=== PATIENT | female | born 1985 | race Caucasian/White ===

== ENCOUNTER 2016-07-28 02:07 | Emergency (ER) | payer OTHER ==
[2016-07-28 02:14] VITALS: TEMP 98.1
[2016-07-28] MEDS ORDERED: ONDANSETRON 4 MG/2 ML VIAL IVP ONE (02:53)
[2016-07-28] MEDS ORDERED: KETOROLAC 30 MG/1 ML SDV IVP ONE (02:53)
[2016-07-28] MEDS ORDERED: NS 1,000 ML IV ONE (02:53)
[2016-07-28 03:04] LABS: % IMMATURE GRANULYOCYTES 0.2 % (0.0-1.1); ABSOLUTE IMMATURE GRANULOCYTES 0.02 10^3/uL (0.00-0.10); ADD DIFF? NO; ADD MORPH? NO; ADD SCAN? NO; ATYPICAL LYMPHOCYTE FLAG 10 (0-99); FRAGMENT RBC FLAG 0 (0-99); HEMATOCRIT 37.5 % (38.0-47.0); HEMOGLOBIN 12.9 g/dL (12.6-16.3); LEFT SHIFT FLG 10 (0-99); LIPEMIA HEMOLYSIS FLAG 90 (0-99); MEAN CELL HEMOGLOBIN 29.5 pg (27.9-34.1); MEAN CELL HEMOGLOBIN CONCENTR. 34.4 g/dL (32.4-36.7); MEAN CELL VOLUME 85.6 fL (81.5-99.8); MEAN PLATELET VOLUME 10.1 fL (8.7-11.7); PLATELET CLUMPS FLAG 0 (0-99); PLATELET COUNT 213 10^3/uL (150-400); RED BLOOD CELL COUNT 4.38 10^6/uL (4.18-5.33); RED CELL DISTRIBUTION WIDTH 12.5 % (11.5-15.2)
[2016-07-28 03:15] LABS: ALANINE AMINOTRANSFERASE 35 IU/L (9-52); ALBUMIN 3.4 g/dL (3.5-5.0); ALKALINE PHOSPHATASE 41 IU/L (38-126); ANION GAP 7 mEq/L (8-16); ASPARTATE AMINOTRANSFERASE 22 IU/L (14-46); BILIRUBIN,TOTAL 0.8 mg/dL (0.1-1.4); CALCIUM 8.7 mg/dL (8.5-10.4); CARBON DIOXIDE 22 mEq/l (22-31); CHLORIDE 108 mEq/L (97-110); CREATININE 0.6 mg/dL (0.6-1.0); GLOMERULAR FILTRATION RATE > 60; GLUCOSE 100 mg/dL (70-100); POTASSIUM 3.8 mEq/L (3.5-5.2); SODIUM 137 mEq/L (134-144)
[2016-07-28] MEDS ORDERED: LORazepam 2 MG/ML INJ IVP ONE (04:11)
[2016-07-28 04:31] VITALS: BP 93/56; PULSE 89; RESP 17; O2SAT 97
[2016-07-28 04:40] LABS: COLOR PALE YELLOW; LEUKOCYTE ESTERASE,URINE NEGATIVE (NEGATIVE); NITRITE,URINE NEGATIVE (NEGATIVE)
--- NOTE | 2016-07-28 04:57 | EDPHY ---
H & P Stated Complaint: MEZA, general pain, tremors, nausea since this am, afebrile, hyperventilating Time Seen by Provider: 07/28/16 02:42 HPI/ROS: HPI The patient presents with body pain which is diffuse from her head to her toes. This is an achy pain which has been present for the last 1 day. It is moderate in severity and associated with some chills, nausea, general fatigue, and hyperventilation. She has no prior history of this. She was able to see her friend who is a surgeon who gave her a L of IV fluid and antiemetic. This helped her to feel better, however tonight her symptoms got worse and that is what brought her in. She has not had a fever though has felt chills. She does not have a runny nose, sore throat, cough. She does not have any dysuria or hematuria. She is not on any new medications. She has not had a rash. REVIEW OF SYSTEMS Constitutional: No fever, no chills. Eyes: No discharge. ENT: No sore throat. Cardiovascular: No chest pain, no palpitations. Respiratory: No cough, no shortness of breath. Gastrointestinal: No abdominal pain, no vomiting. Genitourinary: No hematuria. Musculoskeletal: No back pain. Skin: No rashes. Neurological: No headache. PMHx: History of panic disorder Soc Hx: Lives at home with her partner PHYSICAL General Appearance: Alert, no distress Eyes: Pupils equal and round no pallor or injection ENT, Mouth: Mucous membranes moist Respiratory: There are no retractions, lungs are clear to auscultation Cardiovascular: Regular rate and rhythm Gastrointestinal: Abdomen is soft and non-tender, no masses, bowel sounds normal Neurological: A&O, moves all extremities Skin: Warm and dry, no rashes Musculoskeletal: Neck is supple non tender Extremities: symmetrical, full range of motion Psychiatric: Patient is oriented X 3, there is no agitation Source: Patient Exam Limitations: No limitations - Personal History LMP (Females 10-55): 8-14 Days Ago Current Tetanus/Diphtheria Vaccine: Yes Current Tetanus Diphtheria and Acellular Pertussis (TDAP): Yes - Medical/Surgical History Hx Asthma: No Hx Chronic Respiratory Disease: No Hx Diabetes: No Hx Cardiac Disease: No Hx Renal Disease: No Hx Cirrhosis: No Hx Alcoholism: No Hx HIV/AIDS: No Hx Splenectomy or Spleen Trauma: No Other PMH: Anxiety. Tonsils and adenoids, ankle ORIF - Social History Smoking Status: Light smoker Constitutional: Initial Vital Signs Temperature (C) 36.7 C 07/28/16 02:09 Heart Rate 97 07/28/16 02:09 Respiratory Rate 22 H 07/28/16 02:09 Blood Pressure 88/56 L 07/28/16 02:09 O2 Sat (%) 96 07/28/16 02:09 O2 Delivery Mode Room Air Allergies/Adverse Reactions: No Known Allergies Allergy (Verified 03/16/14 12:05) Home Medications: Medication Instructions Recorded ALPRAZolam [Xanax 0.25 MG (*)] 0.25 mg PO QID #120 tab 10/08/13 Pregabalin [LYRICA] 200 mg PO DAILY 30 Days 10/08/13 Ibuprofen [Motrin (*)] 800 mg PO Q6-8PRN #30 tab 02/02/15 Lorazepam [Ativan] 1 mg PO Q12H PRN #5 tablet 07/28/16 Zoloft 07/28/16 Medical Decision Making Differential Diagnosis: This is a 30-year-old female with history of panic disorder who presents with 1 day of diffuse body pain associated with nausea. On exam, she is well-appearing , well-hydrated with normal vital signs. She does not have any rash, fever, nuchal rigidity. Differential diagnosis includes myalgias from URI, rhabdomyolysis, muscle spasm , anxiety attack. In the emergency room labs were checked. CBC and CMP were normal. She was given a L of fluid, Toradol, Zofran. Her symptoms persisted, thus CK and UA were checked and were also unremarkable. I feel she is suffering from myalgias. I have instructed her to drink plenty of fluids and get rest. She should return to the emergency room if she is worse in any way, otherwise she should follow up with her regular doctor in the next 1-2 days. - Data Points Laboratory Results: Laboratory Results 07/28/16 02:55 07/28/16 02:55 07/28/16 07/28/16 07/28/16 04:30 02:55 02:55 WBC RBC Hgb Hct MCV MCH MCHC RDW Plt Count MPV Neut % (Auto) Lymph % (Auto) [place] % (Auto) Eos % (Auto) Baso % (Auto) Nucleat RBC Rel Count Absolute Neuts (auto) Absolute Lymphs (auto) Absolute Monos (auto) Absolute Eos (auto) Absolute Basos (auto) Absolute Nucleated RBC Immature Gran % Immature Gran # Sodium 137 mEq/L mEq/L (134-144) Potassium 3.8 mEq/L mEq/L (3.5-5.2) Chloride 108 mEq/L mEq/L (97-110) Carbon Dioxide 22 mEq/l mEq/l (22-31) Anion Gap 7 mEq/L L mEq/L (8-16) BUN 11 mg/dL mg/dL (7-23) Creatinine 0.6 mg/dL mg/dL (0.6-1.0) Estimated GFR > 60 Glucose 100 mg/dL mg/dL (70-100) Calcium 8.7 mg/dL mg/dL (8.5-10.4) Total Bilirubin 0.8 mg/dL mg/dL (0.1-1.4) AST 22 IU/L IU/L (14-46) ALT 35 IU/L IU/L (9-52) Alkaline Phosphatase 41 IU/L IU/L (38-126) Creatine Kinase 54 IU/L IU/L (0-156) Total Protein 6.0 g/dL L g/dL (6.3-8.2) Albumin 3.4 g/dL L g/dL (3.5-5.0) Urine Color PALE YELLOW Urine Appearance CLEAR Urine pH 6.0 (5.0-7.5) Ur Specific [place] 1.006 (1.002-1.030) Urine Protein NEGATIVE (NEGATIVE) Urine Ketones NEGATIVE (NEGATIVE) Urine Blood NEGATIVE (NEGATIVE) Urine Nitrate NEGATIVE (NEGATIVE) Urine Bilirubin NEGATIVE (NEGATIVE) Urine Urobilinogen NEGATIVE EU EU (0.2-1.0) Ur Leukocyte Esterase NEGATIVE (NEGATIVE) Ur Culture Indicated? NOT INDICATED (NI) Urine Glucose NEGATIVE (NEGATIVE) 07/28/16 02:55 WBC 8.41 10^3/uL 10^3/uL (3.80-9.50) RBC 4.38 10^6/uL 10^6/uL (4.18-5.33) Hgb 12.9 g/dL g/dL (12.6-16.3) Hct 37.5 % L % (38.0-47.0) MCV 85.6 fL fL (81.5-99.8) MCH 29.5 pg pg (27.9-34.1) MCHC 34.4 g/dL g/dL (32.4-36.7) RDW 12.5 % % (11.5-15.2) Plt Count 213 10^3/uL 10^3/uL (150-400) MPV 10.1 fL fL (8.7-11.7) Neut % (Auto) 87.2 % H % (39.3-74.2) Lymph % (Auto) 8.0 % L % (15.0-45.0) [place] % (Auto) 2.5 % L % (4.5-13.0) Eos % (Auto) 1.9 % % (0.6-7.6) Baso % (Auto) 0.2 % L % (0.3-1.7) Nucleat RBC Rel Count 0.0 % % (0.0-0.2) Absolute Neuts (auto) 7.33 10^3/uL H 10^3/uL (1.70-6.50) Absolute Lymphs (auto) 0.67 10^3/uL L 10^3/uL (1.00-3.00) Absolute Monos (auto) 0.21 10^3/uL L 10^3/uL (0.30-0.80) Absolute Eos (auto) 0.16 10^3/uL 10^3/uL (0.03-0.40) Absolute Basos (auto) 0.02 10^3/uL 10^3/uL (0.02-0.10) Absolute Nucleated RBC 0.00 10^3/uL 10^3/uL (0-0.01) Immature Gran % 0.2 % % (0.0-1.1) Immature Gran # 0.02 10^3/uL 10^3/uL (0.00-0.10) Sodium Potassium Chloride Carbon Dioxide Anion Gap BUN Creatinine Estimated GFR Glucose Calcium Total Bilirubin AST ALT Alkaline Phosphatase Creatine Kinase Total Protein Albumin Urine Color Urine Appearance Urine pH Ur Specific [place] Urine Protein Urine Ketones Urine Blood Urine Nitrate Urine Bilirubin Urine Urobilinogen Ur Leukocyte Esterase Ur Culture Indicated? Urine Glucose Medications Given: Discontinued Medications Sodium Chloride (Ns) 1,000 mls @ 0 mls/hr IV ONCE ONE PRN Reason: Wide Open Stop: 07/28/16 02:54 Last Admin: 07/28/16 03:09 Dose: 1,000 mls Ketorolac Tromethamine (Toradol) 30 mg IVP EDNOW ONE Stop: 07/28/16 02:54 Last Admin: 07/28/16 03:09 Dose: 30 mg Lorazepam (Ativan Injection) 1 mg IVP EDNOW ONE Stop: 07/28/16 04:12 Last Admin: 07/28/16 04:30 Dose: 1 mg Ondansetron HCl (Zofran) 4 mg IVP EDNOW ONE Stop: 07/28/16 02:54 Last Admin: 07/28/16 03:09 Dose: 4 mg Departure - Departure Disposition: Home, Routine, Self-Care Clinical Impression: Myalgia Condition: Good Instructions: Musculoskeletal Pain (ED) Additional Instructions: Please take Tylenol or ibuprofen for the pain. If it is still severe you can take a dose of the Ativan I have prescribed you. Please follow-up with your regular doctor in the next few days if the pain persists. Referrals: ALMA TORREZ [Primary Care Provider] - As per Instructions Prescriptions: Lorazepam [Ativan] 1 mg PO Q12H PRN #5 tablet PRN Reason: Pain, Breakthrough
== END 2016-07-28 05:25 | disposition home or self-care (01) ==
DX: M79.1 Myalgia (principal); F17.200 Nicotine dependence, unspecified, uncomplicated
CPT/HCPCS: 96374; J1885; J2405

== ENCOUNTER 2018-09-13 20:16 | Inpatient (IN) | payer OTHER ==
[2018-09-13 21:07] LABS: PLATELET COUNT 312 10^3/uL (150-400)
[2018-09-13] MEDS ORDERED: ACETAMINOPHEN 500 MG TAB ONE (21:34)
--- NOTE | 2018-09-13 21:34 | EDPHY ---
General - History Smoking Status: Former smoker Time Seen by Provider: 09/13/18 20:33 Narrative: CLINICAL IMPRESSION: M1 hold, suicidal ideations ASSESSMENT/PLAN: 32-year-old female presents to the emergency department on an M1 hold by her LCP for suicidal ideations. Patient reports she has a plan to overdose on her prescription medications because she "feels there is no need to be alive if she lives in a constant state of panic and anxiety". Patient has had psychiatric admissions in the past, the most recent being 3 years ago. She reports no unintentional overdose tonight. Denies alcohol and drugs. Has a clear U tox screen aside from benzos which she takes as needed in the form of Xanax. She has no access to firearms, has no self cutting behavior, is tearful, suicidal, wants to , and has a poor support network. Please see HPI for full details. Patient was medically cleared, TLC evaluation and bed placement pending at time of sign-out to Dr. Rahman at midnight. DIFFERENTIAL DX: Differential includes but not limited to, acute/chronic psychosis, severe depression, suicidal or homicidal ideations, grave disability, failure to thrive , medication noncompliance, medication side effect, alcohol intoxication and illicit drug use, metabolic disturbance, electrolyte imbalance ED PROCEDURES: See lab and/or imaging results below ED COURSE: Patient has been medically cleared for TLC evaluation. She is stable in the ED. On an M1 hold. Case will be signed out to Dr. Rahman pending TLC evaluation and bed placement. CHIEF COMPLAINT: M1 hold for suicidal thoughts HPI: 32-year-old female arrives in the emergency department on an M1 hold for suicidal ideations with her license clinical practitioner . Patient has had a long history of PTSD, anxiety and panic disorder. She also takes medication for depression. She works with a local psychiatrist. She has had inpatient psychiatric admissions in the past due to severe panic. Patient admits to feeling suicidal, states she does not want to live, and has a plan to overdose on her medications. However, she is tearful that her medications are not "enough to kill her". She denies homicidal ideations. She states "howard it worth living if I live in constant state of panic". She denies any self cutting behavior. No access to firearms. She is working with counselors and psychiatrists. Her last admission was 3 years ago. Family lives in [facility]. She does not have a significant local support system. She had a recent relationship and and a promotion at work that increased her stress which she believes exacerbated her panic and anxiety. She takes Xanax as needed but admits she has been taking 3 tablets daily due to increased anxiety and that anxiety is only helped when she is put to sleep by Xanax and Ambien. There are some conflicting reports that patient has been restricting her food intake over her recent relationship ending. Patient tells me that "she is getting better with this". PAST MEDICAL HISTORY: PTSD, depression, anxiety See nurse/triage notes for additional history if applicable Pertinent Past Surgical History: Tonsillectomy, adenoidectomy, orthopedic surgery Family History: No reported family history of mental health illness Social History: Reports no smoking, alcohol use. REVIEW OF SYSTEMS: All other systems negative Constitutional: No fever, no chills, positive for appetite change. Eyes: No discharge, vision change ENT: No sore throat, congestion, ear pain. Cardiovascular: No chest pain, no palpitations. Respiratory: No cough, no shortness of breath. Gastrointestinal: No abdominal pain, no vomiting, diarrhea. Genitourinary: No hematuria, dysuria, flank pain, pelvic pain Musculoskeletal: No back pain, joint swelling, joint pain, myalgias. Skin: No rashes, color change. Neurological: No headache, dizziness, weakness. PHYSICAL EXAM: General Appearance: Alert, tearful, flat affect, poor eye contact, hypotensive , remainder of vital signs stable. HEENT: Oropharynx clear is no erythema or exudates, no tonsillar hypertrophy or asymmetry. Dentition without abnormality. Eyes: [PERRLA, no acute vision change, nystagmus, swelling, discharge, pain or photosensitivity. Neck: Supple, nontender, no lymphadenopathy, no midline pain, FROM, no meningismus. Respiratory: There are no retractions, lungs are clear to auscultation. Cardiac: Regular rate and rhythm, no murmurs or gallops. Gastrointestinal: [Abdomen is soft, nontender Neurological: [ Alert and oriented x 3, CN 2-12 grossly intact Skin: Warm, dry, no rashes, no nodules on palpation. Musculoskeletal: Extremities are symmetrical, full range of motion, no tenderness, deformity, swelling, or erythema. Psychiatric: Patient is oriented X 3, admits to feeling suicidal with plan to overdose on her prescription medication. Denies homicidal ideations. MEDICAL DECISION MAKING: Patient was seen independently. Secondary supervising physician at time of evaluation was Dr. Susanna Sorensen . Diagnosis: Suicidal ideation . New, requires workup Summary: See Assessment and Plan for summary of ED visit Clinical lab tests: ordered / reviewed. Decision to obtain medical records or history from someone other than the patient: Patient's license clinical practitioner Jade Discussed patient with another provider: Dr. Rahman Patient Progress: Stable at time of sign-out. (Evangelista Hughes) Medical Decision Making: Patient is awaiting mental health placement, signed out to Dr. Rahman at 11:30 p.m.. (Teddy Stubbs) 0630: Patient has been sleeping this evening in no acute distress. No complaints. Pending mental health evaluation. Signed over at 7:[address] Thibodeaux. (Geraldo Rahman) Discussion: 7:00 a.m.-I assumed care of this patient at shift change. 7:15 a.m. It seen by mental health and accepted to [facility] by Dr. Lancaster. ( Tamy Thibodeaux) - Objective Vital Signs: Initial Vital Signs Temperature (C) 36.6 C 09/13/18 20:26 Heart Rate 74 09/13/18 20:26 Blood Pressure 89/73 L 09/13/18 20:26 O2 Sat (%) 96 09/13/18 20:26 O2 Delivery Mode Room Air Allergies/Adverse Reactions: No Known Allergies Allergy (Verified 03/16/14 12:05) Home Medications: Medication Instructions Recorded Pregabalin [LYRICA] 200 mg PO DAILY 30 Days capsule 10/08/13 Sertraline HCl [Zoloft 100mg (*)] 150 mg PO DAILY 07/28/16 Zolpidem Tartrate [Ambien] 10 mg PO HS 09/13/18 ALPRAZolam [Xanax 0.5 MG (*)] 0.5 mg PO BID PRN 09/14/18 Acetaminophen [Tylenol 325mg (*)] 325 mg PO Q6 PRN 09/14/18 Pregabalin [LYRICA] 400 mg PO HS 09/14/18 Laboratory Results: Laboratory Results 09/13/18 20:55 09/13/18 20:55 Medications Given: Alprazolam (Xanax) 0.5 mg PO Q8HRS PRN PRN Reason: Anxiety Stop: 03/13/19 11:20 Last Admin: 09/14/18 11:58 Dose: 0.5 mg Discontinued Medications Acetaminophen (Tylenol) 1,000 mg PO EDNOW ONE Stop: 09/13/18 21:36 Last Admin: 09/13/18 21:35 Dose: 1,000 mg Clonazepam (Klonopin) 0.5 mg PO ONCE ONE Stop: 09/14/18 11:09 Last Admin: 09/14/18 14:47 Dose: Not Given Fluconazole (Diflucan) 200 mg PO DAILY ONE Stop: 09/14/18 08:24 Last Admin: 09/14/18 08:51 Dose: 200 mg Lorazepam (Ativan) 1 mg PO EDNOW ONE Stop: 09/13/18 22:16 Last Admin: 09/13/18 22:15 Dose: 1 mg Pregabalin (Lyrica) 200 mg PO ONCE ONE Stop: 09/14/18 11:04 Last Admin: 09/14/18 11:58 Dose: 200 mg Sertraline HCl (Zoloft) 150 mg PO ONCE ONE Stop: 09/14/18 11:06 Last Admin: 09/14/18 11:57 Dose: 150 mg Departure - Departure Disposition: [facility] IP Clinical Impression: Suicidal ideation Condition: Fair
[2018-09-13] MEDS ORDERED: ACETAMINOPHEN 500 MG TAB PO ONE (21:35)
[2018-09-13] MEDS ORDERED: LORazepam 1 MG TAB ONE (22:14)
[2018-09-13] MEDS ORDERED: LORazepam 1 MG TAB PO ONE (22:15)
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
--- NOTE | 2018-09-14 07:50 | ASMTTCLDSP ---
TLC Discharge Disposition Disposition: Answers: Admit Disposition Notes: Notes: Admit Fatoumata Cava. Discharge Concerns/Recommendations: Notes: In consultation with [facility] ED physician, Tamy Thibodeaux MD and on-call psychiatrist, Chase Wetzel MD, both concurred that pt appears to meet 27-65 criteria requiring psychiatric hospitalization as pt appears to be at risk of harm to self due to a mental illness condition. Pt was read the Patient Rights and Responsibilities Statement on 09/14/18 at 0630 hrs, original placed on chart, and was given photocopy of Rights. Pt declined to sign the Patient Rights. Pt was given (but declined to sign) the 3N prohibited belongings list while in the ED. Was patient given the Answers: Yes Inpatient Behavioral Health Prohibited Belongings List while in the ED? For inpatient Chase Wetzel MD admission, the following psychiatrist agreed to accept patient for admission to Behavioral Health ([facility]): Type of Hold: Answers: M1/72-hour Hold Hold initiated by: Answers: Other Notes: Pt's therapist Date Signed: 09/14/2018 07:49 AM Electronically Signed By:Vincenzo Pham
[2018-09-14] MEDS ORDERED: FLUCONAZOLE 100 MG TAB PO ONE (08:23)
--- NOTE | 2018-09-14 08:52 | GCON ---
[f rep st] CONSULTATION DATE OF CONSULTATION: 09/14/2018 Ms. Szymanski is a 32-year-old female with a history of anxiety. She was hospitalized here about 5 year s ago for a similar presentation. She presents to the ER last evening with frequent panic attacks. She takes Lyrica and Zoloft as well as p.r.n. Xanax. She also presented with suicidal ideation. She did not overdose. She was not intoxicated on presentation. Her urine tox showed only benzodiaze pines that she takes in the form of Xanax. Medical history is notable for fairly healthy female. She is also complaining of current yeast infec tion symptoms, but otherwise is without concerning medical complaints. REVIEW OF SYSTEMS: A complete 10-point review of systems conducted negative except as noted in the H PI. PAST MEDICAL HISTORY: History of ankle surgery with plate and subsequent removal, anxiety, adenoidec ming. SOCIAL HISTORY: She works at [employer]. She is a nonsmoker. 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 She does not drink alcohol. FAMILY HISTORY: She denies. ALLERGIES: No known drug allergies. MEDICATIONS: 1. Alprazolam. 2. Lyrica. 3. Zoloft. PHYSICAL EXAMINATION: VITAL SIGNS: Temp 36.6, blood pressure 89/73, pulse 74, breathing 16 times a minute, 96% on room air. GENERAL: Tearful. No acute distress. HEENT: Sclerae anicteric. Orophar ynx clear. Mucous membranes moist. NECK: Supple without lymphadenopathy or JVD. LUNGS: Clear to auscultation bilateral bilaterally. HEART: S1, S2. ABDOMEN: Soft, nontender, non distended. LOWER EXTREMITIES: No edema. Calves nontender. SKIN: Without rash. NEUROLOGIC: Nonf ocal. White count 10.5, hematocrit 43, platelets are 312,000. Chem-7 is normal. Beta HCG is negative. To x screen is positive for benzos, negative alcohol, Tylenol, and salicylates level. I discussed the c ase with Dr. Debra Thibodeaux. ASSESSMENT/PLAN: A 32-year-old female with suicidality. 1. Suicidality/anxiety management per Psych. 2. Yeast infection. We will treat with fluconazole 200 mg x1. This should be adequate. 3. Hypotension. The patient had a similar low blood pressure in the past. She is a lean young fema le. She is alert and oriented. Not tachycardic and euvolemic. No further workup. Thank you for this consultation. [facility] will not follow. /[id number]/MODL
[2018-09-14] MEDS ORDERED: ACETAMINOPHEN 325 MG TAB PO PRN (10:31)
[2018-09-14] MEDS ORDERED: NICOTINE POLACRILEX 2 MG GUM B PRN (10:31)
[2018-09-14] MEDS ORDERED: MAGNESIUM HYDROXIDE 30 ML UDCUP PO PRN (10:31)
[2018-09-14] MEDS ORDERED: MAG HYDROX/AL HYDROX/SIMETH 30 ML UDCUP PO PRN (10:31)
[2018-09-14] MEDS ORDERED: LORazepam 0.5 MG TAB PO PRN (10:31)
[2018-09-14] MEDS ORDERED: PREGABALIN 50 MG CAP PO ONE (11:03)
[2018-09-14] MEDS ORDERED: SERTRALINE HCL 100 MG TAB PO ONE (11:05)
[2018-09-14] MEDS ORDERED: clonazePAM 0.5 MG TAB PO ONE (11:08)
--- NOTE | 2018-09-14 11:12 | PDMN ---
Medical Necessity Medical necessity: Pt meets inpt criteria per MD order and [facility] B-008, Major Depressive Disorder, Adult: Inpatient Care, 3 days. 32 y/o w/current suicidal ideation admitted w/major depressive disorder, severe, panic disorder, and agoraphobia, meets criteria requiring psychiatric hospitalization as pt appears to be at risk of harm to self due to mental illness condition, on M1 hold.
[2018-09-14] MEDS ORDERED: ALPRAZolam 0.5 MG TAB PO PRN ×2 (11:21→11:22)
--- NOTE | 2018-09-14 15:29 | BAPA ---
[f rep st] ADMISSION PSYCHIATRIC ASSESSMENT DATE OF SERVICE: 09/14/2018 CHIEF COMPLAINT: "I am here because of panic attacks that just lasts for days and days. I do not have any way out. I am so tired of this." HISTORY OF PRESENT ILLNESS: From the ED note dated September 13, the patient presented to the emergency department on an M1 hold for suicidal ideations. The patient reported a plan to overdose on her prescription medications. The patient reported no unintentional overdose. From the [facility] evaluation dated 09/14, the patient was placed on a 72-hour M1 hold with start date and time of 09/13/2018, at 7:00 p.m. 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 I have panic attacks daily. I get anxiety around having to take medications. I tell myself I am a fraud. They are going to find out that I do not deserve the promotion that I got a couple months ago and maybe I would be fired. I do not have a college education to fall back on and will not be able to afford my place or a car." The patient was reportedly brought to [facility] ED by [facility] after patient had a phone conversation with her therapist. The patient expressed to the therapist for feeling hopeless and helpless about her panic attacks, seriously considering suicide. The patient was placed on an M1 hold by her outpatient therapist. The patient was admitted involuntarily on an M1 hold due to being a danger to herself and is currently hospitalized for safety, crisis stabilization, and medication evaluation. The patient describes to this BUSINESS MANAGER circumstances that led to current hospitalization as she recently got a promotion at work, overwhelmed and stressed due to promotion. Patient also reports increased stress related to a recent break-up with someone a couple months ago. The patient reports a long history of panic disorder, anxiety. The Patient reports no use of alcohol or other substances prior to this admission. The patient describes current dieting including excessive worry, feeling restless and keyed up. The patient reports she is easily fatigued, difficulty concentrating. Reports this does cause sleep disturbance. Patient reports history of panic attacks. Reports panic attacks are unexpected, reports they "come out of no where." The patient describes symptoms as heart palpitations, increased heart rate, sweating, trembling, feelings of shortness of breath, chest discomfort. Reports she feels lightheaded, feels tingling, feeling as though she is going to lose control. The patient is currently treated on an outpatient basis by Psychiatrist , Margi Miller. Patient reports she has been working with a psychiatrist for the last 5 to 6 years. The patient reports she also sees Jade Blake for therapy. The patient reports she is unsure if her current medications are working. The patient does describe increased use of Xanax p.r.n. over the last several weeks, reporting she has been using Xanax 0.5 mg 2 to 3 times per day. The patient does report good response from Lyrica current dose 200 mg p.o. daily and 400 mg p.o. at bedtime, reports good response from Zoloft 150 mg p.o. daily and Ambien 10 mg p.o. at bedtime for insomnia. PAST PSYCHIATRIC HISTORY: She has a past diagnosis of panic attacks with agoraphobia. The patient reports 1 prior suicide attempt in September of 2013, which she used a box finisher to cut her wrists. The patient has been seen for a mental health evaluation at the [facility] Emergency Department on 09/22/2016, prior to that 10/06/2013, admitted to the [facility] from 10/06/2013 to 10/08/2013. The patient reports she does take her medications as prescribed. The patient denies any history of aggression or violence. Denies any history of homicidal ideation. ALLERGIES: No known allergies. CURRENT MEDICATIONS: The patient requests to this BUSINESS MANAGER to continue her outpatient medications. Current medications are: 1. Tylenol 650 mg p.o. q.4 hours p.r.n. 2. Xanax 0.5 mg p.o. q.8 hours p.r.n. 3. Maalox syrup 30 mL p.o. q.6 hours p.r.n. 4. Milk of magnesia 30 mL p.o. daily. 5. Lyrica 200 mg p.o. daily. 6. Lyrica 400 mg p.o. at bedtime. 7. Zoloft 150 mg p.o. daily. 8. Ambien 10 mg p.o. at bedtime p.r.n. PAST MEDICAL HISTORY: The patient reports history of adenoidectomy, tonsillectomy 2 orthopedic surgeries on her left ankle at ages 22 and 24. The patient reports no other medical or surgical history. SOCIAL HISTORY: The patient currently lives in [place], [place] in a [employer] [facility]. Reports she lives alone. The patient is single, never been and has no children. The patient reports she is not currently involved in a relationship. The patient reports her sexual orientation as heterosexual. Reports she is currently not sexually active. The patient reports no local supports. States her family lives outside of the [facility]. The patient reports her family lives in [place] and [place]. 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 Reports being employed at her current job for the last 2 years. The patient reports no history of duty. The patient reports no history of arrests or other legal history. The patient describes her hindu as Yazidi. The patient describes no hindu or spiritual practice that may impact her treatment. The patient reports parents are currently . Mother currently resides in [place] [facility]. Father lives in [place]. The patient reports her brother age 32 and identical twin sisters ages 28, currently resides outside of the [facility]. The patient reports she was born and raised in [place]. The patient reports meeting all her developmental milestones. Denies any history of learning delays or difficulties. The patient reports no history of TIAs, loss of consciousness, or concussions. Patient reports no history of physical, emotional, or sexual abuse or trauma. SUBSTANCE USE HISTORY: Patient reports she occasionally drank alcohol and other drugs and used other drugs in high school and reports this use as "experimental." The patient reports no current alcohol, marijuana, or other substance use. Reports she has not used alcohol or other substances for many years. The patient's BAL upon admission was 0. The patient's urine drug screen was positive for benzodiazepines. The patient is currently prescribed Xanax. FAMILY PSYCHIATRIC HISTORY: The patient reports mother and father both free of anxiety. The patient reports no family history of suicide or suicide attempts. ADMISSION LABS AND STUDIES: 1. CBC within normal limits except white blood cells were elevated at 10.43, absolute lymphocytes were elevated at 3.9. 2. CMP within normal limits. 3. Beta HCG qualitative test negative. 4. Toxicology screen nonnegative for benzodiazepine and negative all other substances. Negative for ethyl alcohol. MENTAL STATUS EXAM: The patient is a well-nourished female looking stated chronological age. Attire is appropriate. Dress is casual. Grooming status is appropriate. Ambulation is independent. Gait is normal and coordinated. Posture is normal and relaxed. Eye contact is appropriate and adequate. Motor activity is appropriate with purposeful, organized, coordinated movements with no involuntary movements. Attitude is fairly cooperative. At times, patient is guarded, defensive. Patient appears fairly attentive and relates well to this interviewer. Language production is spontaneous. Rate, rhythm and volume are normal. Articulation is clear. Patient reports mood as "anxious" with congruent affect. The patient's thought process is linear and logical. No loose associations, tangential thought, thought blocking, concrete thinking, or any other signs of formal thought disorder. The patient does not report suicidal or homicidal thoughts, ideas, or plans. The patient denies auditory or visual hallucinations. The patient does not appear to be attending stimuli. Patient is oriented to time, place, and situation. The patient's attention and concentration are fair. The patient's insight and judgment poor. There is no evidence of gross cognitive dysfunction during the interview and no evidence of apparent dysfunction. The patient does not report undesirable side effects from current medications. DIAGNOSES: Based on the patient's current presentation, the patient's diagnoses are: 1. Generalized anxiety disorder. 2. Panic disorder. FORMULATION: The patient is a 32-year-old female single currently employed living in [place], [place] who presents to the hospital involuntarily. Currently on an M1 hold due to being a danger to herself. The patient requires continued inpatient care because of current mood instability and recent suicidal ideation with plan to overdose. The patient presents with problems of increased anxiety and panic related to multiple stressors including recent break -up with partner, feeling overwhelmed and depressed but recently given a promotion at her place of employment. The patient's life has been affected by these problems including suicidal ideation with overdose. The patient has a past psychiatric history of panic disorder that is currently treated. Patient reports response to treatment has been poor. The patient is a high suicide safety risk due to current mood instability, ideation with plan to overdose. Protective factors while hospitalized include ongoing safety checks, active involvement in treatment and support from our treatment team. Patient could benefit from inpatient hospitalization, safety, crisis stabilization, and medication evaluation. PLAN: 1. Medications. The patient requests her outpatient medications to be continued. This BUSINESS MANAGER does discuss other options for treating panic, anxiety, insomnia. The patient reports she will consider these options. The patient is very adamant about continuing her outpatient medications, and agrees to continue current medications listed above. Will review other options, risks and benefits of psychotropic medications with the patient throughout the course of her hospitalization. No other medication changes at this time as more time is needed to determine ongoing tolerability and efficacy. Plan is to continue to observe patient for response and side effects from medications, and ongoing monitoring and evaluation. 2. Review with patient informed consent and recommendations for psychotropic medication treatment listed below 3. Labs: additional labs: A1c, liver function, lipid panel, and TSH 4. Therapy: continue milieu and group therapy 5. Further investigation including gathering information from patients relatives and review of past case records to inform treatment plan. 6. Safety/Wellness plan and follow-up outpatient appointments to be established prior to discharge. Next steps are for patient to meet with respiratory care program director to plan a safe discharge plan and establish outpatient services for ongoing treatment. 7. Confer with inpatient treatment team regarding treatment plan. 8. Address psychosocial stressors by meeting with nurse wound care to establish discharge plan including referrals for outpatient services. 9. Legal status: M1 10. Consider discharge on Tuesday if patient is in stable condition, safe, and has a safe discharge plan. ESTIMATED LENGTH OF STAY: 1-3 days PSYCHOTROPIC MEDICATION TREATMENT INFORMED CONSENT and RECOMMENDATIONS: Review nature of condition, diagnosis, and prognosis. Review nature and purpose of psychotropic medication treatment. Review type of psychotropic medications being ordered. Review risk and benefits of psychotropic medication treatment. Review probable length of time will need to take medications. Review risk and benefits of not undergoing psychotropic medication treatment. Review alternative treatments to psychotropic medications. Review psychotropic medications contraindications, drug-drug interactions, side effects, and importance of reporting any side effects to a psychiatric provider or nurse during inpatient hospitalization, and upon discharge to patients psychiatric outpatient provider, primary care provider, or other health hospice care consultant. Review importance of asking a nurse, psychiatric provider, or primary care provider any questions or problems concerning the psychotropic medications. Verify patient understands the information that has been provided, and understands, accepts, and agrees to psychotropic medications. Review patients safety plan and importance of patient to communicate to staff while hospitalized if patient is ever a danger to self/others, or unable to care for self, and upon discharge, the importance for patient to contact [facility] or [facility], or go to the nearest emergency room, if patient is ever a danger to self/others, or unable to care for self. Recommend that upon discharge patient establish medication management treatment with a psychiatric provider, establishes routine therapy appointments, and follow-up with primary care provider. Verify patient understands and agrees to these recommendations. /[id number]/MODL MTDD
[2018-09-14] MEDS: ALPRAZolam 0.5 MG TAB PO PRN (18:05)
[2018-09-14] MEDS: ZOLPIDEM TARTRATE 5 MG TAB PO PRN (20:59)
[2018-09-14] MEDS ORDERED: clonazePAM 0.5 MG TAB PO SCH (21:00)
[2018-09-14] MEDS: PREGABALIN 100 MG CAP PO SCH (21:00)
[2018-09-15] MEDS: PREGABALIN 100 MG CAP PO SCH ×2 (07:51→20:49)
[2018-09-15] MEDS: SERTRALINE HCL 50 MG TAB PO SCH (07:51)
[2018-09-15] MEDS: ALPRAZolam 0.5 MG TAB PO PRN (07:51)
--- NOTE | 2018-09-15 09:05 | SOAPPROG ---
SOAP Progress Note Assessment/Plan: Assessment: Generalized Anxiety Disorder and Panic Disorder. No change, patient continues to be unstable (see subjective/objective note). Patient is not safe to discharge at this time as patient continues to exhibit signs of severe anxiety, and express severe anxiety symptoms. Patient could benefit from continued inpatient hospitalization for crisis stabilization, safety, and medication evaluation. Patients anxiety and panic reaching the point of causing patient to have suicidal ideation prior to admission, and patient could benefit from medication change while hospitalized to prevent anxiety and panic reaching this level of severity. Plan: 1. Psychotropic medications: After reviewing options, risks, and benefits patient agrees to continue current medications with following changes: discontinue Xanax and begin Klonipin 0.5 mg po TID. No other medication changes at this time as more time is needed to determine ongoing tolerability and efficacy. Plan is to continue to observe patient for response and side effects from medications, and ongoing monitoring and evaluation. 2. Review with patient informed consent and recommendations for psychotropic medication treatment listed below 3. Labs: no additional labs at this time 4. Therapy: continue milieu and group therapy 5. Further investigation including gathering information from patients relatives and review of past case records to inform treatment plan. 6. Safety/Wellness plan and follow-up outpatient appointments to be established prior to discharge. Next steps are for patient to meet with care management specialist to plan a safe discharge plan and establish outpatient services for ongoing treatment. 7. Confer with inpatient treatment team regarding treatment plan. 8. Psychosocial stressors addressed through lead case manager. 9. Legal status: M1 10. Consider discharge on Tuesday if patient is in stable condition, safe, and has a safe discharge plan. PSYCHOTROPIC MEDICATION TREATMENT INFORMED CONSENT and RECOMMENDATIONS: Review nature of condition, diagnosis, and prognosis. Review nature and purpose of psychotropic medication treatment. Review type of psychotropic medications being ordered. Review risk and benefits of psychotropic medication treatment. Review probable length of time patient will need to take medications. Review risk and benefits of not undergoing psychotropic medication treatment. Review alternative treatments to psychotropic medications. Review psychotropic medications contraindications, drug-drug interactions, side effects, and importance of reporting any side effects to a psychiatric provider or nurse during inpatient hospitalization, and upon discharge to patients psychiatric outpatient provider, primary care provider, or other health post acute care nurse. Review importance of asking a nurse, psychiatric provider, or primary care provider any questions or problems concerning the psychotropic medications. Verify patient understands the information that has been provided, and understands, accepts, and agrees to psychotropic medications. Review patients safety plan and importance of patient to report to staff while hospitalized if patient is ever a danger to self/others, or unable to care for self, and upon discharge, the importance for patient to contact [facility] or [facility], or go to the nearest emergency room, if patient is ever a danger to self/others, or unable to care for self. Recommend that upon discharge patient establish medication management treatment with a psychiatric provider, establishes routine therapy appointments, and follow-up with primary care provider. Verify patient understands and agrees to these recommendations. 09/15/18 09:04 Subjective: Following up with patient for evaluation of anxiety, panic, and safety. Patient reports, "I feel like the Xanax is not lasting long enough. I took one yesterday around noon, and I felt very anxious by 3. Can we try the Klonipin?" Discuss options, risks, and benefits and patient agrees to discontinue Xanax and begin Klonipin 0.5 mg po TID. Patient expresses the following psychiatric symptoms severe anxiety. Patient does not report undesirable side effects from the medications, and agrees to continue medications. Objective: Vital Signs Temp Pulse Resp BP Pulse Ox 36.8 C 81 14 97/53 L 95 09/14/18 13:38 09/14/18 13:38 09/14/18 13:38 09/14/18 13:38 09/14/18 13:38 MSE: The patient is a well-nourished female looking stated chronological age. Attire is appropriate dress is hospital garb. Grooming status is appropriate. Ambulation is independent. Gait is normal and coordinated. Posture is normal. Eye contact is appropriate. Motor activity is appropriate with purposeful, organized, coordinated movements; with no involuntary movements. Attitude is cooperative. Patient appears attentive and relates well to this interviewer. Language production is spontaneous. R/R/V normal. Articulation is clear. Patient reports mood as anxious with anxious affect. Patients thought process is linear and logical with no signs of thought disorder. Patient does not report suicidal/homicidal thoughts, ideas, or plans. Patient denies auditory, visual hallucinations. Patient denies delusions. Patient does not appear to be attending to internal stimuli. Patients attention and concentration are fair. Patient is oriented to person, place, time, and situation. Patients insight is fair. Patients judgment is fair. - Time Spent With Patient Time Spent With Patient: 15 minutes, met with patient individually. - Pending Discharge Pending Discharge Within 24 Hours: No Pending Discharge Within 48 Hours: No ICD10 Worksheet Patient Problems: Problems Problem Status Onset Suicidal ideation Acute Generalized anxiety disorder Chronic Panic disorder Chronic Anxiety Acute Suicide and self-inflicted injury by cutting and piercing instrument Acute
[2018-09-15] MEDS: clonazePAM 0.5 MG TAB PO SCH ×3 (10:14→20:50)
--- NOTE | 2018-09-15 11:59 | ASMTBHMTP ---
Master Treatment Plan Master Treatment Plan Answers: Depressed Mood with for: Suicidal Ideation Date: 09/15/2018 Diagnosis on Admission: MDD ; MACO Expected length of stay: 3-5 Reason for admission: Notes: The patient stated, "... is the only way out of the pain. It is a deep seated conviction. I feel useless like I should just ." The patient reported decreased suicidal ideation as well as, post traumatic stress disorder; trauma unknown. The patient has a related panic d/o that lasts "days, is physically painful, and violent." Patient's stated presenting problems: Notes: The patient reported feeling like she is "constantly mitigating and avoiding panic" and no longer wishes to live this way. The patient expressed self-hatred. Patient's goals for treatment: Notes: The patient will trial a long acting version of current anti-anxiety medication and get connected with additional outpatient community resources. Patient's strengths: Notes: The patient stated, "I'm intelligent. I can tie elder stems with my tongue." Identify supports outside of hospital: Notes: The patient is supported by outpatient providers and family. Discharge criteria: Notes: Suicidal ideation will resolve and patient will have a plan to safely manage recurrent suicidal ideation. Initial disposition plan/considerations: Notes: The patient will return home, routine, and follow up care. Master Treatment Plan Required Signatures Psychiatrist signature: Answers: Psychiatrist: RN on-shift signature: Answers: RN: Patient signature: Answers: Patient: Date Signed: 09/15/2018 11:59 AM Electronically Signed By:Lois Parisi
[2018-09-15] MEDS ORDERED: NICOTINE POLACRILEX 2 MG GUM B PRN (13:46)
[2018-09-15] MEDS: ZOLPIDEM TARTRATE 5 MG TAB PO PRN (22:21)
[2018-09-16 06:39] VITALS: BP 92/51
[2018-09-16] MEDS: PREGABALIN 100 MG CAP PO SCH (09:43)
[2018-09-16] MEDS: clonazePAM 0.5 MG TAB PO SCH ×2 (09:44→15:50)
[2018-09-16] MEDS: SERTRALINE HCL 50 MG TAB PO SCH (09:44)
--- NOTE | 2018-09-16 15:17 | ASMTCMCOM ---
CM Note CM Note Notes: Pt. reports feeling "nervous" adding about "where my life is going". Pt. shared she is nervous about work, and stated an excuse letter would be helpful. Pt. reports sleeping "good". Pt. stated she is "eating a lot more than usual". Pt. reports no issues with her current medications. Pt. reports attending "a bunch" of groups yesterday, stating she "didn't feel like going today". Pt. reports wanting a referral for CBT groups or therapists, adding she is "willing to pay out of pocket". Pt. denied SI, HI, AVH and paranoia. CC later me with pt and MD. Pt. stated her weekday prescriber was "an asshole". Pt. stated she wants to discharge today, and is unwilling to stay voluntarily Pt. reports being frustrated with being in the hospital. Pt. stated she plans to return to her home, adding her family is in town and will be staying with her. Pt. denied having a SI plan, stating she "just have thoughts". Pt. stated she feels safe to return home. Pt. presents as alert, demanding at times, good eye contact, somewhat entitled, and mostly cooperative. Staff report pt. sleeping 8 hours and being medication compliant. CC left messages with pt's outpatient providers about follow up appointments yesterday. CC will provider referral information to the [facility] outpatient counseling for CBT/DBT services. Date Signed: 09/16/2018 03:17 PM Electronically Signed By:Gi Brady
--- NOTE | 2018-09-16 18:10 | BDS ---
[f rep st] BEHAVIORAL HEALTH DISCHARGE SUMMARY REASON FOR ADMISSION: The patient is a 32-year-old woman who presented to the emergency department after being placed on an M1 by her outpatient therapist, Jade Blake LCSW. The patient told her therapist that she had been thinking about overdosing on her prescription medications because she feels "there is no need to be alive if I am living in a constant state of panic and anxiety." The patient has history of anxiety, panic disorder, agoraphobia. She was admitted to a hospital 3 years ago. She told the ED physician that she had thoughts of overdosing, but had no plan or intent to overdose. She states that she has been taking her medications as prescribed. Denies taking more than the prescribed amount of medication. She denies drug and alcohol use. She has no access to firearms. No history of self cutting. ADMITTING DIAGNOSES: 1. Generalized anxiety disorder. 2. Panic disorder. ADMITTING PHYSICAL EXAMINATION: Done by Dr. Vick Landaverde. Please see his H and P for details. There were no abnormal findings on physical exam. ADMISSION LABORATORY: White cell count 10.43, hemoglobin 14.3, hematocrit 43.5 , platelet count 312. Sodium 136, potassium 4.0, chloride 103, BUN 14, creatinine 0.7, glucose 95. Hemoglobin A1c 5.1. Calcium 9.8, total bilirubin 0.3, AST 18, ALT 23, alkaline phosphatase 48, total protein 7.6, triglycerides 70, cholesterol 226. Beta hCG was negative. TSH was 2.95. Urine drug screen was positive for benzodiazepines, negative for all other drugs of abuse. HOSPITAL COURSE: She was admitted to the inpatient behavioral health services unit for safety and further stabilization. She was seen by the psychiatric nurse practitioner, Juan Kimble on 09/15/2018. The patient told the psychiatric nurse practitioner that she felt like her Xanax was not sufficient for treating her anxiety. She told him that she felt like that when she would take her Xanax p.r.n. that she would start feeling anxious around 3 o'clock in the afternoon. She admits that a lot of her anxiety is situational and that her anxiety is triggered by her work environment, which she says is "very stressful." Juan Kimble recommended changing her to a longer acting benzodiazepine and switching her from Xanax to Klonopin 0.5 mg p.o. t.i.d. scheduled. The patient agreed with this plan and gave informed consent for the medication change. The psychiatric nurse practitioner continued all other medications that the patient was taking as prescribed by her outpatient psychiatrist, Dr. Margi Nunez. As previously mentioned, the patient gave informed consent for the prescribing of Klonopin 0.5 mg p.o. t.i.d. The patient did not want any other medication changes. When this MD met with the patient on Tuesday, day of discharge (09/16), he talked to the patient with the managed care provider present. The patient was tearful at times, though she reported that her anxiety was "better" since she was admitted. She denied having any thoughts, plans or intents of hurting herself. She said that her thoughts of suicide come and go. She said that they are largely based upon situational stressors in her life. She said when her stress is "bad" her thoughts turn to suicide. She says that right now she does not like "the way my life is going." She says that she works at [employer] and feels that her job is "very stressful." She feels like she is not doing what she wants to be doing and at times she says that she feels "hopeless" about the future. She says, "I just want to know where my life is going." However, when MD asked the patient about current thoughts or plans of hurting herself, she denied having any current suicidal ideation. She denied any plan or intent to hurt herself or anyone else. She says that she "just want things to get better." She stated that when she came into the emergency room, she had no intention of hurting herself, but that she "just wanted to get some help." She states that she has 2 outpatient providers and that she is happy with the care that she is receiving from both of them. She sees Jade Blake about every 2 weeks, according to the patient, though she states that she can see Jade "more frequently if I want to." She says that in the past she has been in intensive outpatient program in [place], but she does not remember where it was. She said that was 5 years ago and she says, "I think it helped." MD spent a very long amount of time talking to the patient about multiple modalities of treatment for anxiety disorder including pharmacological interventions from SSRIs to mood stabilizers. MD also talked about nonpharmacological interventions, which have been demonstrated to be effective for managing anxiety and reducing frequency of panic disorder. MD talked to the patient extensively about mindfulness-based interventions including mindfulness-based cognitive therapy as well as mindfulness-based stress reduction and other forms of treatment such as neuro feedback, progressive muscle relaxation, movement therapy including yoga, don chi, and Qigong. Psychiatrist also talked about nature-based treatments including equine therapy. The patient states that she has not discussed any of these forms of treatments with her outpatient providers, but says that she would be interested in looking at new treatments that could possibly be more effective and help her feel less anxious on a day-to-day basis. MD talked to the patient about increasing her Zoloft since she is on submaximal dose and MD did warn about the risks and potential for adverse effects from taking benzodiazepines. The patient says that she is not entirely convinced she needs to be on Klonopin and she does not think she needs to take the medication every day. She told this psychiatrist that she was not using Xanax on a daily basis, that she would only take it "when I need it." She said that she did not use the medication every day. This explanation is slightly different than what the patient told psychiatric nurse practitioner, Juan Kimble. She told him that she felt like the medication wore off by the afternoon, and that she would like a longer-acting benzodiazepine. Based upon this MD's thorough questioning of the patient today, it does not sound like the patient requires the use of a benzodiazepine on a scheduled basis and that she would be fine using p.r.n. medication like Xanax as needed and that this would be a safer option than having her take t.i.d. scheduled dose of a benzodiazepine. This MD talked to the patient about the risks of using benzodiazepines, including the risks of developing tolerance, physiological dependence, including withdrawal symptoms. MD also talked to the patient about the risk for rebound anxiety. MD encouraged the patient to consider other nonaddictive forms of treatment including medications that work to maintain a lower level of anxiety and prevent breakthrough panic attacks rather than treating the anxiety or the panic after the fact. This is the way that SSRIs work and why they are the first-line treatment for generalized anxiety disorder. MD recommended that the patient consider increasing her dose of Zoloft. If she did not feel that Zoloft was an effective medication, MD recommended switching to another SSRI. MD gave the patient the opportunity to remain in the hospital voluntarily and have medication adjustments made, but MD stressed that the patient would need to be under observation and monitoring to make sure that any changes to her medication regimen were well tolerated and that they showed beneficial results. The patient stated that she was not willing to stay in the hospital any longer. She said, "I don't like it here." She also said, "I don't want to stay in this place." MD stressed that if patient chose not to stay in the hospital voluntarily that she would need to discuss any medication adjustments with her outpatient provider and that her outpatient provider would be able to do that when she saw her in her office, but it might take longer and it might have to happen over a longer period of time. The patient said that she was fine with that, she trusted her outpatient provider, and that if she was going to make any medication adjustments, she would rather have Dr. Margi Recinos make those changes. Patient stated that she would talk to Jade Blake this week and that she would start seeing her more frequently. MD and the managed care provider both talked to the patient about doing another intensive outpatient program; talked to her about the DBT program that is offered through the behavioral health outpatient clinic at [facility]. Patient says that she would like to have information about that program and that she would contact that program on Tuesday. After MD answered all the patient's questions, the patient said that she was grateful for the MD taking the time to give her "such a long explanation" about what her treatment options were and also what some of the pros and cons were of different forms of treatment to help manage her anxiety. The patient stated that she would like to stay on her same medications, that she would return to taking the Xanax only as needed, and on days when she was having a panic attack, and that she would follow up with her outpatient provider, Dr. Margi Nunez about adjusting her Zoloft dose or trying a different SSRI if Dr. Margi Nunez approved of that plan. The patient stated that she has family in town. Her mother and her sister are both visiting and that they would be staying with her in her apartment when she discharges. They will be there to supervise and monitor her, and that they would make sure that she follows up with Jade Blake and with Dr. Margi Carl this coming week. The patient stated that she would be safe at home , that she was glad that her family was there to support her, that she was feeling "less anxious", not having any panic, that she denied feeling helpless, hopeless, worthless, sad or depressed, and stated that she had no thoughts, plans or intents to hurt herself or anyone else. CONDITION AT DISCHARGE: The patient was stable. She said that her mood had improved and that her anxiety was better since she had been admitted. She was looking forward to talking to her outpatient providers about getting on a more effective treatment regimen including increased frequency of therapy sessions with her outpatient provider and possibly doing an IOP. DISCHARGE MEDICATIONS: The patient was not given any prescriptions at time of discharge. She said that she has just seen Dr. Margi Nunez, her outpatient prescriber, about a month ago and was given refills of all of her medications. She will continue taking them as prescribed. DISCHARGE DIAGNOSES: 1. Major depressive disorder, recurrent, severe, without psychotic features. 2. Generalized anxiety disorder. 3. Panic disorder. 4. Rule out borderline personality disorder. DISPOSITION: The patient was discharged from the inpatient behavioral health unit upon the expiration of her mental health hold. She is going to stay at her apartment with her mother and sister who are visiting from out of town and are here to provide support for her. The patient states that she does not have any appointments scheduled with her outpatient providers, but she said that she would contact Jade Blake, her individual therapist, as well as Dr. Margi Nunez, her outpatient psychiatrist, this week and schedule appointments. She said that she would have "no problem" getting in to see both of her providers this week. LEGAL COURSE: The patient's mental health hold on day of discharge; she was changed to voluntary status prior to her discharge. /[id number]
== END 2018-09-16 16:35 | disposition home or self-care (01) | DRG 885 ==
LOC: BBEH 09-14 09:55
PROVIDERS: ADMIT Psychiatry & Neurology Psychiatry; ATTEND Psychiatry & Neurology Psychiatry
DX: F33.2 Major depressive disorder, recurrent severe without psychotic features (principal); F41.0 Panic disorder [episodic paroxysmal anxiety]; F60.3 Borderline personality disorder; R45.851 Suicidal ideations; F43.10 Post-traumatic stress disorder, unspecified; Z87.891 Personal history of nicotine dependence
CPT/HCPCS: 80305; G0480